=== PATIENT | male | born 1960 | race Caucasian/White ===

== ENCOUNTER → 2019-05-17 | Outpatient (CLI) | payer MEDICARE, OTHER ==
[~2019-05-17] MED LIST: AMIT10TA6 PO; ASPI81 PO; CHOL100018 PO; CITA-106 PO; ISOS10TA16 PO; LABE200T6 PO; METF-960 PO; NITR0.4T52 SL; OMEP20 PO; RISP0.5T19 PO; ZOLP5 PO
[2019-05-17 12:19] LABS: BASOPHILS % (AUTO) 0.9 % (0.0-2.0); EOSINOPHILS % (AUTO) 2.2 % (1.0-6.0); HEMATOCRIT 43.3 % (41-53); LYMPHOCYTES # (AUTO) 2.9 K/uL (1.0-4.8); LYMPHOCYTES % (AUTO) 38.7 % (22.0-44.0); MEAN CORPUSCULAR HEMOGLOBIN 31.2 pg (26.0-34.0); MEAN CORPUSCULAR HGB CONC 34.6 G/dL (31.0-37.0); MEAN CORPUSCULAR VOLUME 90 fL (80-100); MONOCYTES # (AUTO) 0.5 K/uL (0.1-1.0); MONOCYTES % (AUTO) 6.1 % (2.0-9.0); NEUTROPHILS # (AUTO) 3.9 K/uL (1.8-7.7); NEUTROPHILS % (AUTO) 52.1 % (40.0-70.0); PLATELET COUNT (AUTO) 243 K/uL (150-450); RED BLOOD CELL COUNT(AUTO) 4.81 MIL/uL (4.50-5.90); RED CELL DISTRIBUTION WIDTH 13.2 % (11.5-14.5)
[2019-05-17 12:42] LABS: B-TYPE NATRIURETIC PEPTIDE 9 pg/mL (0-100)
[2019-05-17 12:45] LABS: HEMOGLOBIN A1C 10.5 % (4.5-6.2)
[2019-05-17 12:47] LABS: ALANINE AMINOTRANSFERASE 112 U/L (12-78); ALBUMIN 3.7 g/dL (3.4-5.0); ALKALINE PHOSPHATASE 74 U/L (46-116); ANION GAP 12 mmol/L (8-16); ASPARTATE AMINOTRANSFERASE 78 U/L (15-37); BILIRUBIN,TOTAL 0.5 mg/dL (0.1-1.0); CALCIUM, TOTAL 8.6 mg/dL (8.8-10.5); CARBON DIOXIDE 24 mmol/L (22-29); CHLORIDE 103 mmol/L (98-107); CHOL/HDL RATIO 6.8 (4.2-7.3); CHOLESTEROL 211 mg/dL (131-200); CREATININE 0.85 mg/dL (0.60-1.30); GLOMERULAR FILTR. RATE CALC > 60 mL/min (>60); GLUCOSE,RANDOM 286 mg/dL (70-110); HDL CHOLESTEROL 31 mg/dL (40-60); LDL CHOL (CALC.) 151 mg/dL (0-130); POTASSIUM 3.7 mmol/L (3.5-5.1); SODIUM SERUM 139 mmol/L (136-145); TOTAL PROTEIN, SERUM 8.4 g/dL (6.4-8.2); TRIGLYCERIDES 146 mg/dL (15-150); UREA NITROGEN, BLOOD 10 mg/dL (7-18)
== END | disposition home or self-care (01) ==
LOC: MSR 09:44
PROVIDERS: ATTEND Internal Medicine Cardiovascular Disease
DX: I11.0 Hypertensive heart disease with heart failure (principal); I50.9 Heart failure, unspecified; E11.8 Type 2 diabetes mellitus with unspecified complications; E55.9 Vitamin D deficiency, unspecified; D56.5 Hemoglobin E-beta thalassemia
CPT/HCPCS: 82306; 83036; 83735; 84439; 84443; 86038; 86141; 86430

== ENCOUNTER 2023-11-24 05:27 | Day surgery (SDC) | payer MEDICARE, OTHER ==
[2023-11-24] VITALS (13 sets, daily range): BP systolic 121–150; BP diastolic 64–89; PULSE 68–89
[~2023-11-24] VITALS: Ht 170.2 cm; Wt 97.7 kg
[~2023-11-24 05:27] MED LIST changes: -AMIT10TA6 PO; +AMIT10TA7 PO; +ASPI-1450 PO; -ASPI81 PO; -CITA-106 PO; +CITA-144 PO; +LABE200T56 PO; -LABE200T6 PO; +METF-1211 PO; -METF-960 PO; -RISP0.5T19 PO; +RISP0.5T80 PO; +SODIUM CHLORIDE 0.9% 1,000 ML ONE; +ZOLP-280 PO; -ZOLP5 PO
[2023-11-24 06:04] LABS: BASOPHILS % (AUTO) 0.8 % (0.0-2.0); EOSINOPHILS % (AUTO) 1.8 % (1.0-6.0); HEMATOCRIT 41.8 % (41-53); HEMOGLOBIN 14.4 g/dL (13.5-17.5); LYMPHOCYTES # (AUTO) 3.5 K/uL (1.0-4.8); LYMPHOCYTES % (AUTO) 35.8 % (22.0-44.0); MEAN CORPUSCULAR HEMOGLOBIN 31.1 pg (26.0-34.0); MEAN CORPUSCULAR HGB CONC 34.5 G/dL (31.0-37.0); MEAN CORPUSCULAR VOLUME 90 fL (80-100); MONOCYTES # (AUTO) 0.8 K/uL (0.1-1.0); MONOCYTES % (AUTO) 8.2 % (2.0-9.0); NEUTROPHILS # (AUTO) 5.2 K/uL (1.8-7.7); NEUTROPHILS % (AUTO) 53.4 % (40.0-70.0); PLATELET COUNT (AUTO) 248 K/uL (150-450); RED BLOOD CELL COUNT(AUTO) 4.63 MIL/uL (4.50-5.90); RED CELL DISTRIBUTION WIDTH 13.2 % (11.5-14.5); WHITE BLOOD COUNT (AUTO) 9.7 K/uL (4.5-11.0)
[2023-11-24 06:14] LABS: ANION GAP 7 mmol/L (8-16); CALCIUM, TOTAL 9.3 mg/dL (8.8-10.5); CARBON DIOXIDE 30 mmol/L (22-29); CHLORIDE 100 mmol/L (98-107); CREATININE 0.96 mg/dL (0.60-1.30); GLOMERULAR FILTR. RATE CALC > 60 mL/min (>60); GLUCOSE,RANDOM 142 mg/dL (70-110); POTASSIUM 3.7 mmol/L (3.5-5.1); SODIUM SERUM 137 mmol/L (136-145); UREA NITROGEN, BLOOD 16 mg/dL (7-18)
[2023-11-24 06:15] LABS: PROTHROMBIN TIME 10.9 SEC (9.4-11.6)
[2023-11-24] MEDS: SODIUM CHLORIDE 0.9% 1,000 ML IV ONE (06:30)
[2023-11-24] MEDS ORDERED: VERAPAMIL HCL 2.5 MG/ML 2 ML VIAL ONE (06:54)
[2023-11-24] MEDS ORDERED: IOHEXOL 300 MG/ML 100 ML VIAL ONE (06:55)
[2023-11-24] MEDS ORDERED: NITROGLYCERIN 50 MG/D5% WATER 250 ML ONE (06:55)
[2023-11-24] MEDS ORDERED: LIDOCAINE/PF 1% 30 ML VIAL ONE (06:55)
[2023-11-24] MEDS ORDERED: SODIUM BICARBONATE 50 MEQ/50 ML VIAL ONE (06:55)
[2023-11-24] MEDS ORDERED: HEPARIN SODIUM 1000 UNITS/NS 1,000 ML ONE (06:55)
[2023-11-24] MEDS ORDERED: DAPA5TAB PO (07:02)
[2023-11-24] MEDS ORDERED: FENO54TA7 PO (07:02)
[2023-11-24] MEDS ORDERED: CHOL200074 PO (07:02)
[2023-11-24] MEDS ORDERED: SEMA2PEN SQ (07:02)
[2023-11-24] MEDS ORDERED: EVOL140P3 SQ (07:02)
[2023-11-24] MEDS ORDERED: METO-416 PO (07:02)
[2023-11-24] MEDS ORDERED: CYCL10TA16 PO (07:02)
[2023-11-24] MEDS ORDERED: AMLO10TA55 PO (07:02)
[2023-11-24] MEDS ORDERED: SITA50 PO (07:02)
[2023-11-24] MEDS ORDERED: LOSA-382 PO (07:02)
[2023-11-24] MEDS ORDERED: OMEP40CA21 PO (07:02)
[2023-11-24] MEDS ORDERED: ROSU10TA72 PO (07:02)
[2023-11-24] MEDS ORDERED: MIDAZOLAM HCL 2 MG/2 ML VIAL ONE (07:33)
[2023-11-24] MEDS ORDERED: FentaNYL CITRATE PF 100 MCG/2 ML VIAL ONE (07:33)
[2023-11-24] MEDS: VERAPAMIL HCL 2.5 MG/ML 2 ML VIAL IARTER ONE (08:32)
[2023-11-24] MEDS: HEPARIN SODIUM,PORCINE 1,000 UNITS/ML 10 ML VIAL IARTER ONE (08:32)
[2023-11-24] MEDS: HEPARIN SODIUM 1000 UNITS/NS 1,000 ML IARTER ONE (08:32)
[2023-11-24] MEDS: LIDOCAINE 1% 30 ML/SOD BICARB 8.4% 4 ML SQ ONE (08:32)
[2023-11-24] MEDS: NITROGLYCERIN/D5W 50 MG/250 ML IV BOTTLE IARTER ONE (08:33)
[2023-11-24] MEDS: HEPARIN SODIUM,PORCINE 1,000 UNITS/ML 10 ML VIAL ICOR ONE (08:34)
[2023-11-24] MEDS: IOHEXOL 300 MG/ML 100 ML VIAL ICOR ONE (08:34)
[2023-11-24] MEDS: MIDAZOLAM HCL 2 MG/2 ML VIAL IVP ONE (08:35)
[2023-11-24] MEDS: FentaNYL CITRATE PF 100 MCG/2 ML VIAL IVP ONE (08:35)
== END 2023-11-24 13:15 | disposition home or self-care (01) ==
LOC: CATHLAB 05:27
PROVIDERS: ATTEND Internal Medicine
DX: R94.39 Abnormal result of other cardiovascular function study (principal); I25.10 Atherosclerotic heart disease of native coronary artery without angina pectoris; E11.9 Type 2 diabetes mellitus without complications; E78.00 Pure hypercholesterolemia, unspecified; J32.9 Chronic sinusitis, unspecified; Z79.82 Long term (current) use of aspirin; Z79.899 Other long term (current) drug therapy; Z90.89 Acquired absence of other organs; Z98.890 Other specified postprocedural states
CPT/HCPCS: 93458; 80048; 85025; 85610; 85730; 36415; 99156; J3010; J1644; J3490 ×4; J2250; J7030; Q9967